=== PATIENT | male | born 1980 | race American Indian/Alaskan Native ===

== ENCOUNTER 2017-05-19 23:47 | Emergency (ER) | payer SELFPAY ==
[2017-05-20] MEDS ORDERED: TYLENOL PO ONE (00:07)
[2017-05-20 01:15] LABS: Basophils % (Auto) 1.1 % (0.0-1.8); Eosinophils % (Auto) 0.3 % (0.0-4.3); Hematocrit 32.6 % (35.5-45.6); Mean Corpuscular HGB Conc 34 % (32-34); Mean Corpuscular Hemoglobin 32 pg (28-32); Mean Corpuscular Volume 95 fl (84-94); Platelet Count 118 K/mm3 (140-440); Red Blood Count 3.42 M/mm3 (3.65-5.03); Red Cell Distribution Width 13.5 % (13.2-15.2)
[2017-05-20 01:33] LABS: Alanine Aminotransferase 5 units/L (7-56); Alkaline Phosphatase 68 units/L (35-129); Anion Gap 17 mmol/L; BUN/Creatinine Ratio 12.85; Blood Urea Nitrogen 9 mg/dL (9-20); Calcium 8.5 mg/dL (8.4-10.2); Carbon Dioxide 22 mmol/L (22-30); Chloride 102.7 mmol/L (98-107); Glucose 106 mg/dL (75-100); Potassium 3.7 mmol/L (3.6-5.0); Sodium 138 mmol/L (137-145); Total Protein 7.9 g/dL (6.3-8.2)
--- NOTE | 2017-05-20 01:56 | Ultrasound Report ---
FINAL REPORT EXAM: US TESTICULAR DOPPLER COMP HISTORY: Testicular Pain COMPARISON: None available. TECHNIQUE: Several real-time grayscale and color Doppler images were obtained. FINDINGS: The right testicle measures 4.2 x 2.4 x 3.0 centimeters. Left testicle measures 3.6 x 1.9 x 2.4 centimeters. There is vascular flow to the bilateral testicles. Within the right epididymal head, there is an 8 millimeter cyst. There is heterogeneous echogenicity left testicle with increased vascularity concerning for acute inflammation of the left testicle. The medial and superior margin right testicle there is a soft tissue structure with vascular flow measuring up to 5.4 x 2.4 by 3.1 centimeters. This is indeterminate in etiology and could reflect bowel within inguinal hernia. There is mild skin thickening of the scrotal sac concerning for mild nonspecific edema versus cellulitis. Scrotal wall thickness measures up to 1.1 centimeters. Small nonspecific right-sided hydrocele. IMPRESSION: Heterogeneous echogenicity and increased vascular flow to the left testicle concerning for left-sided orchitis and probable epididymitis. Mild wall thickening of the scrotal skin concerning for cellulitis versus nonspecific edema. There is a vascular soft tissue structure at the median superior margin right testicle which could reflect a small inguinal hernia containing bowel. Correlation for focal palpable lump in that region. If clinically indicated, CT of the pelvis could be obtained for further evaluation. 8 millimeter right epididymal head cyst.
[2017-05-20 03:31] LABS: Bilirubin,Urine NEG (Negative); Blood,Urine NEG (Negative); Ketones,Urine NEG (Negative); Leukocyte Esterase,Urine NEG (Negative); Mucus,Urine FEW /HPF; Nitrite,Urine NEG (Negative)
[2017-05-20] MEDS ORDERED: VIBRAMYCIN PO ONE (06:30)
[2017-05-20] MEDS ORDERED: TORADOL IV ONE (07:39)
[2017-05-20] MEDS ORDERED: NACL 0.9% 1000 ML 2,000 ML IV ONE (07:39)
[2017-05-20] MEDS ORDERED: ROCEPHIN/NS 1 GM/50 ML 1 GM/50 ML BAG IV ONE (07:39)
[2017-05-20] MEDS ORDERED: NACL ONE (07:50)
--- NOTE | 2017-05-20 08:31 | Cat Scan Report ---
CT SCAN OF THE ABDOMEN AND PELVIS WITH CONTRAST: HISTORY: Abdominal pain. TECHNIQUE: Helical CT in 1.25mm intervals following IV contrast. Sagittal and coronal reconstructions. FINDINGS: Scrotal ultrasound performed same day was reviewed. There is no evidence for inguinal hernia CT. The liver is normal in size and is without focal defect. No gallstones or biliary dilatation are noted. The spleen and pancreas demonstrate a normal size and attenuation with no evidence of abnormal mass. The kidneys are normal in size and position with no evidence of hydronephrosis or mass. The adrenal glands are normal. There is no intestinal obstruction or ascites. The appendix is not confidently identified. No inflammatory changes in the right lower quadrant. The abdominal aorta is normal. No abnormalities are identified within the retroperitoneum or mesentery. There is no evidence of peritoneal air or fluid. There is no evidence of any abnormal masses or fluid collections within the pelvis. No adenopathy is identified. The bladder is normal. IMPRESSION: Unremarkable CT scan of the abdomen and pelvis with contrast.
[2017-05-20] MEDS ORDERED: NACL 0.9% 1000 ML 1,000 ML ONE (09:43)
--- NOTE | 2017-05-20 10:29 | Emergency Department Report ---
ED Male HPI - General Chief complaint: Urogenital-Male Stated complaint: BACK PAIN, SWOLLEN TEST. Time Seen by Provider: 05/20/17 06:28 Source: patient Mode of arrival: Ambulatory Limitations: No Limitations - History of Present Illness MD Complaint: testicle pain, testicle swelling -: Gradual, days(s) Location: right testicle, left testicle Radiation: none Severity: mild Severity scale (0 -10): 3 Quality: aching Consistency: intermittent Improves with: none Worsens with: none swelling (right testicle. Reports history of same but no follow up with urology. Reports that he took an antibiotic for symptoms and felt better but afterwards symptoms returned. Recent completion antibiotic), fever. denies: discharge, rash, urinary retention, blood in urine, dysuria, nausea/vomiting, incontinence - Related Data Previous Rx's Medication Instructions Recorded Last Taken Type Doxycycline Monohydrate 100 mg PO BID #28 capsule 05/20/17 Unknown Rx [Doxycycline Monohydrate CAP] Ibuprofen [Motrin] 600 mg PO Q6H PRN #20 tablet 05/20/17 Unknown Rx Allergies Allergy/AdvReac Type Severity Reaction Status Date / Time No Known Allergies Allergy Verified 05/19/17 23:52 ED Review of Systems ROS: Stated complaint: BACK PAIN, SWOLLEN TEST. Other details as noted in HPI Other: GENERAL: fever. No weight change, fatigue, weakness, or night sweats SKIN: No changes in skin or hair, no itching, no rashes, no jaundice HEAD: No trauma, headache, or visual changes EYES: No blurriness, tearing, itching, acute visual loss, conjunctival discoloration, or scleral icterus EARS: No hearing loss, tinnitus, vertigo, or earache NOSE: No rhinorrhea, stuffiness, sneezing, itching, or epistaxis MOUTH: No bleeding gums, hoarseness, sore throat, or swelling CARDIAC: No new murmur, chest pain, palpitations, dyspnea on exertion, orthopnea , PND, or edema RESPIRATORY: No shortness of breath, wheeze, cough, sputum production, hemoptysis, pneumonia, asthma, bronchitis, or emphysema GI: No change in appetite, nausea, vomiting, dysphagia, change in bowel frequency, diarrhea, constipation, bleeding, hematemesis, melena, hematochezia, or abdominal pain URINARY: No frequency, urgency, polyuria, dysuria, hematuria, or incontinence MUSCULOSKELETAL: No muscle weakness, joint stiffness, decrease in range of motion, redness, swelling NEUROLOGIC: No loss of sensation, numbness, tingling, tremors, weakness, paralysis, seizures HEMATOLOGIC: No anemia, easy bruising, bleeding, petechiae, or purpura ENDOCRINE: No hot or cold intolerance, sweating, polyuria, polydipsia or, polyphagia no thyroid problems PSYCHIATRIC: No change in mood, no anxiety, no depression GENITAL: Male: Right > left testicular pain. No penile discharge, hernia ED Past Medical Hx - Past Medical History Previous Medical History?: No - Surgical History Past Surgical History?: No - Social History Smoking Status: Current Every Day Smoker Substance Use Type: Marijuana - Medications Home Medications: Home Medications Medication Instructions Recorded Confirmed Last Taken Type Doxycycline Monohydrate 100 mg PO BID #28 capsule 05/20/17 Unknown Rx [Doxycycline Monohydrate CAP] Ibuprofen [Motrin] 600 mg PO Q6H PRN #20 tablet 05/20/17 Unknown Rx ED Physical Exam - General Limitations: No Limitations - Other Other exam information: GENERAL: Patient in no acute distress HEAD: Normocephalic, atraumatic EYES: PERRLA, EOM intact, no scleral icterus, visual mendenhall and acuity wnl NOSE: No tenderness, discharge, sinus tenderness MOUTH: No erythema, bleeding, exudate HEART: Regular rate and rhythm, no murmur, S1-S2 are auscultated, pulses are symmetric LUNGS: bilateral breath sounds. No wheezing, rales, rhonchi, ABDOMEN: Normal bowel sounds, no tenderness, no rebound, no guarding, no masses , no CVA tenderness MUSCULOSKELETAL: Normal joint range of motion, no redness, no swelling, no tenderness NEUROLOGIC: GCS 15, Alert and Oriented x3, Cranial nerves intact, normal sensation, normal strength, normal gait, no cerebellar deficit PSYCHIATRIC: No homicidal or suicidal ideation, no anxiety, no depression, no hallucinations SKIN: Skin is warm and dry, no wounds, no rashes GENITOURINARY: Male: Right testicular tenderness and swelling. No rashes, ulcers, discharge, no scrotal masses, no hernia ED Course Vital Signs 05/19/17 05/20/17 05/20/17 23:52 07:28 08:36 Temperature 101.7 F H 102.2 F H 100.4 F H Pulse Rate 91 H 97 H 97 H Respiratory 22 18 Rate Blood Pressure 108/70 Blood Pressure 144/85 [Left] O2 Sat by Pulse 98 97 Oximetry 05/20/17 05/20/17 10:38 11:24 Temperature 99.3 F 99.5 F Pulse Rate 75 Respiratory 18 Rate Blood Pressure Blood Pressure 118/75 [Left] O2 Sat by Pulse 100 Oximetry ED Medical Decision Making - Lab Data Result diagrams: 05/20/17 00:53 05/20/17 00:53 - Radiology Data Radiology results: report reviewed - Medical Decision Making Patient comfortable. Updated with results. Plan discharge with outpatient follow up. Patient agrees with plan and will return if symptoms worsen. Critical care attestation.: If time is entered above; I have spent that time in minutes in the direct care of this critically ill patient, excluding procedure time. ED Disposition Clinical Impression: Orchitis, Epididymitis Disposition: DC- TO HOME OR SELFCARE Is pt being admited?: No Condition: Stable Instructions: Epididymo-orchitis (ED), Testicle Pain (ED) Prescriptions: Doxycycline Monohydrate [Doxycycline Monohydrate CAP] 100 mg PO BID #28 capsule Ibuprofen [Motrin] 600 mg PO Q6H PRN #20 tablet PRN Reason: Pain Referrals: BECKY AMADO MD [Staff Physician] - 2-3 Days PRIMARY CAREMD [Primary Care Provider] - 2-3 Days [facility] [Outside] - 2-3 Days Forms: STI Treatment and Prevention Time of Disposition: 10:26
[2017-05-20] MEDS ORDERED: ZITHROMAX PO ONE (10:38)
[2017-05-20] MEDS ORDERED: ROCEPHIN 250 MG in NACL 0.9% 50 ML IM ONE (10:38)
[2017-05-20] MEDS ORDERED: ZOFRAN ODT PO ONE (10:39)
[2017-05-20 11:24] VITALS: BP 118/75
[2017-05-20] MEDS ORDERED: ROCEPHIN IM ONE (12:00)
== END 2017-05-20 11:45 | disposition home or self-care (01) ==
LOC: ED 23:47
DX: N45.2 Orchitis (principal); N45.1 Epididymitis; F17.210 Nicotine dependence, cigarettes, uncomplicated; F12.10 Cannabis abuse, uncomplicated
CPT/HCPCS: 36415; 74177; 80053; 81001; 82140; 85025; 87040; 93975; 96361; 96365; 96372; 96375; 99285; J0696; J1885; J7030; Q9967; Q0162